=== PATIENT | female | born 1975 | race Caucasian/White ===

== ENCOUNTER → 2017-02-07 | Outpatient (CLI) | payer OTHER ==
[~2017-02-07] MED LIST: PRENTAB26 PO
--- NOTE | 2017-02-07 11:29 | DIAGNOSTIC IMAGING REPORT ---
RIGHT FOOT MIN 3 VIEWS ROUTINE CLINICAL HISTORY: Right lateral foot pain and bruising. COMPARISON: None. DISCUSSION: No fractures or dislocations are visualized. There are no erosive or destructive changes. IMPRESSION: 1. No acute fractures 2. No evidence of erosive disease Electronically signed by: Kenji Joyner M.D. 02/07/2017 11:28 AM Dictated Date/Time: 02/07/2017 11:27 AM
[2017-02-07 13:01] LABS: BASO % 0.2 %; BASO ABS # 0.01 K/uL (0-0.2); COMPLETE YES; EOS % 1.4 %; HEMATOCRIT 39.3 % (37-47); LYMPH % 26.9 %; MEAN CELL VOLUME 90.6 fL (80-100); MEAN CORPUSCULAR HEMOGLOBIN 31.1 pg (25-34); MEAN CORPUSCULAR HGB CONC 34.4 g/dl (32-36); MEAN PLATELET VOLUME 10.5 fL (7.4-10.4); MONO % 7.9 %; NEUT % 63.6 %; PLATELET COUNT 177 K/uL (130-400); RED BLOOD COUNT 4.34 M/uL (4.2-5.4); WHITE BLOOD COUNT 4.84 K/uL (4.8-10.8)
[2017-02-07 13:29] LABS: BLOOD UREA NITROGEN 11 mg/dl (7-18); BUN/CREATININE RATIO 13.5 (10-20); CALCIUM 9.2 mg/dl (8.5-10.1); CARBON DIOXIDE 29 mmol/L (21-32); CHLORIDE 106 mmol/L (98-107); CHOLESTEROL 141 mg/dl (0-200); CREATININE 0.79 mg/dl (0.60-1.20); GLUCOSE 81 mg/dl (70-99); SODIUM 140 mmol/L (136-145)
[2017-02-07 13:39] LABS: CHOLESTEROL/HDL RATIO 3.1; HDL CHOLESTEROL 45 mg/dl; LDL CHOLESTEROL CALCULATED 83 mg/dl; TRIGLYCERIDES 64 mg/dl (0-150); VERY LOW DENSITY LIPOPROT CALC 13 mg/dl
== END | disposition home or self-care (01) ==
LOC: C.RAD1850 10:55
PROVIDERS: ATTEND Nurse Practitioner Adult Health
DX: S90.30XA Contusion of unspecified foot, initial encounter (principal); X58.XXXA Exposure to other specified factors, initial encounter

== ENCOUNTER → 2017-04-22 | Outpatient (CLI) | payer OTHER | END | disposition home or self-care (01) | LOC: C.PAPS 14:24 | PROVIDERS: ATTEND Obstetrics & Gynecology | DX: Z01.419 Encounter for gynecological examination (general) (routine) without abnormal findings (principal) ==

== ENCOUNTER → 2017-06-17 | Outpatient (CLI) | payer OTHER ==
--- NOTE | 2017-06-17 07:57 | DIAGNOSTIC IMAGING REPORT ---
RIGHT FOREFOOT MRI HISTORY: Right forefoot pain. CONTUSION OF RT FOOT INITIAL ENCOUNTER TECHNIQUE: Multiplanar multisequence MRI of the right forefoot was performed without the use of intravenous contrast COMPARISON STUDY: Right foot 02/07/2017. FINDINGS: Skin marker overlying the dorsal aspect of the fifth metatarsal. No underlying bony abnormality. Normal marrow signal intensity within the visualized osseous structures. No acute fracture or dislocation. Small amount of soft tissue edema along the lateral aspect of the fifth MTP joint. There is also a 4 mm subcutaneous fluid collection at this location. This could represent a small bursitis. The flexor and extensor tendons are normal in course, caliber, and signal intensity. IMPRESSION: 1. No fracture or dislocation within the right forefoot. 2. A 4 mm focal subcutaneous fluid collection with surrounding soft tissue edema lateral to the fifth MTP joint. This favors a small bursitis. Electronically signed by: Mauri Moeller M.D. 06/17/2017 7:55 AM Dictated Date/Time: 06/17/2017 7:49 AM
== END | disposition home or self-care (01) ==
LOC: C.MRI 05:45
PROVIDERS: ATTEND Podiatrist
DX: S90.31XA Contusion of right foot, initial encounter (principal); X58.XXXA Exposure to other specified factors, initial encounter